=== PATIENT | female | born 1990 | race Caucasian/White ===

== ENCOUNTER → 2020-01-06 | Outpatient (CLI) | payer BC, SELFPAY ==
[2020-01-06 09:19] VITALS: BMI 25.0
[2020-01-06 16:56] LABS: Amphetamine Urine VISTA NEGATIVE (<1000 ng/mL); Barbiturate Urine VISTA NEGATIVE (< 200 ng/mL); Benzodiazepine Urine VISTA NEGATIVE (< 200 ng/mL); Cocaine Urine VISTA NEGATIVE (< 300 ng/mL); Ecstacy Urine VISTA NEGATIVE (< 500 ng/mL); Methadone Urine VISTA NEGATIVE (< 300 ng/mL); PCP Urine VISTA NEGATIVE (< 25 ng/mL); THC Urine VISTA NEGATIVE (< 50 ng/mL); Vista UDS pH Range 6
[2020-01-10 03:06] LABS: Chlamydia By Nucleic Acid AMP Negative (Negative)
[2020-01-10 05:40] LABS: Gonococcus By Nucleic Acid AMP Negative (Negative)
== END | disposition home or self-care (01) ==
LOC: LABSPEC 16:25
PROVIDERS: Referring Provider Obstetrics & Gynecology; Visit Provider Obstetrics & Gynecology
DX: Z34.90 Encounter for supervision of normal pregnancy, unspecified, unspecified trimester (principal)
CPT/HCPCS: 80307; 87086; 87491; 87591

== ENCOUNTER → 2020-02-05 09:15 | Outpatient (CLI) | payer BC, SELFPAY ==
[2020-02-05 08:24] VITALS: BMI 25.0
[2020-02-05 10:21] LABS: Absolute Lymphocyte Count 2.88 X10^3/uL (0.83-4.51); Absolute Neutrophil Count 5.3 X10^3/uL (2.0-7.7); Basophil# 0.04 X10^3/uL; Basophil% 0.4 % (0-1); Eosinophil# 0.07 X10^3/uL; Eosinophils% 0.8 % (0-5); Hematocrit 37.5 % (37-47); Hemoglobin 12.9 g/dL (12.0-15.0); Lymphocyte # 2.88 X10^3/ul (4.0); Lymphocyte % 31.4 % (19-41); Mean Corp Hgb Conc 34.4 g/dL (32-36); Mean Corpuscular Hgb 30.1 pg (27.0-32.0); Mean Corpuscular Volume 87.6 fL (81-99); Mean Platelet Vol. 9.7 fl (6.2-12.0); Monocyte# 0.82 X10^3/uL; Monocyte% 8.9 % (0-10); NRBC Flagged by Analyzer 0 % (0-5); Neutrophil # 5.31 X10^3/uL (2.7-7.7); Neutrophil % 57.8 % (47-70); Platelet Count 242 K/mm3 (150-450); RBC Distribution Width CV 12.7 % (11.6-14.6); RBC Distribution Width SD 40.2 fl (35.1-43.9); Red Blood Count 4.28 M/mm3 (4.2-5.4); White Blood Count 9.2 K/mm3 (4.4-11.0)
[2020-02-05 11:13] LABS: HIV - WCH Non-Reactive (Nonreactive); Hepatitis B Surface Antigen Non-Reactive (Nonreactive); Hepatitis C Antibody Non-Reactive (Nonreactive); Rubella IgG > 500.0 IU/mL
[2020-02-11 01:33] LABS: Rapid Plasmin Reagin (RPR) NONREACTIVE (NONREACTIVE)
== END ==
PROVIDERS: Referring Provider Obstetrics & Gynecology; Visit Provider Obstetrics & Gynecology
DX: Z34.90 Encounter for supervision of normal pregnancy, unspecified, unspecified trimester (principal)
CPT/HCPCS: 36415; 85025; 86592; 86703; 86762; 86803; 86850; 86900; 86901; 87340

== ENCOUNTER → 2020-05-20 09:17 | Outpatient (CLI) | payer BC, SELFPAY ==
[2020-04-27 09:01] VITALS: BMI 26.6
[2020-05-20 09:44] LABS: Absolute Lymphocyte Count 2.38 X10^3/uL (0.83-4.51); Absolute Neutrophil Count 8.3 X10^3/uL (2.0-7.7); Basophil# 0.05 X10^3/uL; Basophil% 0.4 % (0-1); Eosinophil# 0.06 X10^3/uL; Eosinophils% 0.5 % (0-5); Hematocrit 35.5 % (37-47); Hemoglobin 12.5 g/dL (12.0-15.0); Lymphocyte # 2.38 X10^3/ul (4.0); Lymphocyte % 20.5 % (19-41); Mean Corp Hgb Conc 35.2 g/dL (32-36); Mean Corpuscular Hgb 31.6 pg (27.0-32.0); Mean Corpuscular Volume 89.6 fL (81-99); Mean Platelet Vol. 9.5 fl (6.2-12.0); Monocyte# 0.71 X10^3/uL; Monocyte% 6.1 % (0-10); NRBC Flagged by Analyzer 0 % (0-5); Neutrophil # 8.27 X10^3/uL (2.7-7.7); Neutrophil % 71.3 % (47-70); Platelet Count 222 K/mm3 (150-450); RBC Distribution Width CV 13.1 % (11.6-14.6); RBC Distribution Width SD 42.5 fl (35.1-43.9); Red Blood Count 3.96 M/mm3 (4.2-5.4); White Blood Count 11.6 K/mm3 (4.4-11.0)
[2020-05-20 10:03] LABS: Glucose Challenge Gest 1H 50g 102 mg/dL (70-140)
== END ==
PROVIDERS: Obstetrics & Gynecology; Referring Provider Obstetrics & Gynecology; Visit Provider Obstetrics & Gynecology
DX: Z34.90 Encounter for supervision of normal pregnancy, unspecified, unspecified trimester (principal)
CPT/HCPCS: 36415; 82950; 85025

== ENCOUNTER → 2020-07-01 08:49 | Outpatient (CLI) | payer BC, SELFPAY ==
[2020-07-01 08:24] VITALS: BMI 27.8
[2020-07-01 09:00] LABS: Absolute Lymphocyte Count 2.55 X10^3/uL (0.83-4.51); Basophil# 0.03 X10^3/uL; Basophil% 0.3 % (0-1); Eosinophil# 0.04 X10^3/uL; Eosinophils% 0.4 % (0-5); Hematocrit 37.7 % (37-47); Lymphocyte # 2.55 X10^3/ul (4.0); Lymphocyte % 22.4 % (19-41); Mean Corp Hgb Conc 34.5 g/dL (32-36); Mean Corpuscular Hgb 31.3 pg (27.0-32.0); Mean Corpuscular Volume 90.8 fL (81-99); Mean Platelet Vol. 9.7 fl (6.2-12.0); Monocyte# 0.69 X10^3/uL; Monocyte% 6.1 % (0-10); NRBC Flagged by Analyzer 0 % (0-5); Neutrophil # 8.01 X10^3/uL (2.7-7.7); Neutrophil % 70.2 % (47-70); Platelet Count 221 K/mm3 (150-450); RBC Distribution Width CV 13.3 % (11.6-14.6); RBC Distribution Width SD 43.1 fl (35.1-43.9); Red Blood Count 4.15 M/mm3 (4.2-5.4); White Blood Count 11.4 K/mm3 (4.4-11.0)
[2020-07-01 09:30] LABS: ALB/GLOB Ratio 0.7 RATIO (0.9-2.4); AST(SGOT) 19 U/L (15-37); Alanine Aminotransfer ALT/SGPT 21 U/L (13-56); Albumin, Serum 2.5 g/dL (3.2-5.0); Alkaline Phosphatase 161 U/L (45-117); Anion Gap 8 (5-15); BUN 5 mg/dL (7-18); BUN/Creat Ratio 7.9 RATIO (10-20); Calcium,Total 8.6 mg/dL (8.5-10.1); Chloride 109 mmol/L (98-107); Creatinine, Serum 0.63 mg/dL (0.55-1.02); EST Glomerular Filtration Rate 116 mL/min (>60); Est Glom Filt Rate - Afr Amer 140 mL/min (>60); Globulin 3.7 g/dL (2.2-4.2); Glucose 113 mg/dL (74-106); Potassium 3.6 mmol/L (3.5-5.1); Protein, Total 6.2 g/dL (6.4-8.2); Sodium Level 139 mmol/L (136-145)
[2020-07-01 13:13] LABS: Protein, Urine (Random) 24.3 mg/dL (<11.9); Protein:Creat Ratio 116 mg/g CRE (0-200)
== END ==
PROVIDERS: Referring Provider Obstetrics & Gynecology; Visit Provider Obstetrics & Gynecology
DX: O16.3 Unspecified maternal hypertension, third trimester (principal); Z3A.00 Weeks of gestation of pregnancy not specified
CPT/HCPCS: 36415; 80053; 82570; 84156; 85025

== ENCOUNTER → 2020-07-15 | Outpatient (CLI) | payer BC, SELFPAY ==
[2020-07-15 09:14] VITALS: BMI 28.1
== END | disposition home or self-care (01) ==
LOC: LABSPEC 13:07
PROVIDERS: Visit Provider Obstetrics & Gynecology
DX: Z34.93 Encounter for supervision of normal pregnancy, unspecified, third trimester (principal); Z3A.36 36 weeks gestation of pregnancy
CPT/HCPCS: 87077; 87081; 87186

== ENCOUNTER 2020-07-30 20:00 | Inpatient (IN) | payer BC, SELFPAY ==
[2020-07-29 09:10] VITALS: BMI 28.7
[2020-07-30] VITALS (24 sets, daily range): BP systolic 107–148; BP diastolic 58–95; PULSE 92–126; TEMP 37.2–37.8; O2SAT 99–100; BMI 29.0
[2020-07-30 19:58] LABS: ROM Internal Control Test YES-OK TO RESULT pt. (Internal QC)
[2020-07-30 19:59] LABS: ROM Patient Test POSITIVE (Negative)
[2020-07-30] MEDS: Lactated Ringers 1,000 ML 50 ML IV (20:46)
[2020-07-30 20:56] LABS: Absolute Lymphocyte Count 2.75 X10^3/uL (0.83-4.51); Absolute Neutrophil Count 14.7 X10^3/uL (2.0-7.7); Basophil# 0.06 X10^3/uL; Basophil% 0.3 % (0-1); Eosinophil# 0.02 X10^3/uL; Eosinophils% 0.1 % (0-5); Hematocrit 41.9 % (37-47); Hemoglobin 14.4 g/dL (12.0-15.0); Lymphocyte # 2.75 X10^3/ul (4.0); Lymphocyte % 14.6 % (19-41); Mean Corp Hgb Conc 34.4 g/dL (32-36); Mean Corpuscular Volume 90.1 fL (81-99); Mean Platelet Vol. 10.1 fl (6.2-12.0); Monocyte# 1.17 X10^3/uL; Monocyte% 6.2 % (0-10); NRBC Flagged by Analyzer 0 % (0-5); Neutrophil # 14.74 X10^3/uL (2.7-7.7); Neutrophil % 78.4 % (47-70); Platelet Count 237 K/mm3 (150-450); RBC Distribution Width CV 13.2 % (11.6-14.6); RBC Distribution Width SD 42.9 fl (35.1-43.9); Red Blood Count 4.65 M/mm3 (4.2-5.4); White Blood Count 18.8 K/mm3 (4.4-11.0)
[2020-07-30] MEDS: Ondansetron 4 MG/2 ML Vial IV (21:33)
[2020-07-30] MEDS: Lactated Ringers 500 ML 999 ML IV (21:56)
[2020-07-30] MEDS: fentaNYL-bupivacaine (epidural) 100 ML BAG EPIDURAL (23:19)
[2020-07-31] VITALS (32 sets, daily range): BP systolic 110–135; BP diastolic 58–95; PULSE 84–134; RESP 15–16; TEMP 36.4–38.8; O2SAT 96–100
--- NOTE | 2020-07-31 | PLAC_PTH ---
PATIENT: CATERINA DAWKINS LOC: [facility] U#:[id number] AGE/SX: 30/F ROOM: WP3 RE07/30/[address]: Dr. Ana Santana MD : 1990 BED: 1 DIS: 08/01/2020 SPEC #: [id number] RECD: 07/31/20 07:45 STATUS: CRESENCIO SALASAngella #: [id number] KARON: 07/31/20 00:[address]: Ana Santana DEPT: SURGICAL PATHOLOGY RECD BY: Jono Clark ENTERED: 08/01/20 07:38 SP TYPE: PLACENTA OTHR DR: No Primary Care Phys Tissues: Placenta, NOS Procedures: Surgery Specimen Level V HEADER OPERATION: Vaginal delivery PRE-OP DIAGNOSIS: Vaginal delivery TISSUE SUBMITTED: Placenta MICROSCOPIC DIAGNOSIS Felipe placenta (609 gm): Umbilical cord - trivascular with acute funisitis. Placental membranes - acute chorioamnionitis and acute deciduitis. Placental disc - John-Vignesh change and mild intervillous congestion. AM:huan 08/03/2020 MICROSCOPIC DESCRIPTION Slides are reviewed. GROSS DESCRIPTION SPECIMEN: PLACENTA / CLINICAL INFORMATION: A. Weight: 3.62 kg B. Gestational Age: 39 weeks C. Sex: Female PLACENTAL WEIGHT (POST FIXATION): 609 gm PLACENTAL DIMENSIONS: 25 x 19 x 3 cm PLACENTAL SHAPE: Usual ovoid PLACENTAL WEIGHT FOR GESTATIONAL AGE: Over 99th percentile MEMBRANES - Present A. Insertion: Marginal B. Site of rupture from edge: At edge of placental disc C. Color of membrane: Diaz-downing D. Abnormalities: None UMBILICAL CORD - Present A. Color: Diaz-downing B. Insertion: Paracentral C. Length: 27 cm D. Diameter: 1 cm E. Number of vessels: Three F. Abnormalities: None PLACENTAL DISC - Present A. Color of surface: Diaz-downing. surface shows focal area of membrane hemorrhage. B. surface abnormalities: None C. Maternal cotyledons: Intact with minimal tears D. Attached retro placental clot: No clot E. Cut surface: Dark red and spongy F. Lesions: None G. Separate clot: Absent SECTIONS SUBMITTED: 1. Membrane roll 2. Cord, maternal end 3. Cord, end 4. Placental disc, and maternal surfaces 5. Placental disc, and maternal surfaces 6. Placental disc, and maternal surfaces SJ:huan 08/02/20 TC:2 CPT: 25772
[2020-07-31] MEDS: Acetaminophen 500 MG Tablet PO (01:27)
[2020-07-31] MEDS: Ondansetron 4 MG/2 ML Vial IV ×2 (01:38→06:01)
[2020-07-31] MEDS: Lactated Ringers 500 ML 999 ML IV ×2 (01:45→05:38)
[2020-07-31] MEDS: fentaNYL-bupivacaine (epidural) 100 ML BAG EPIDURAL (03:39)
[2020-07-31] MEDS: Oxytocin 30 units/NS 500 ml 30 UNITS/500 ML IV.SOLN 334 UNITS IV ×2 (07:03)
--- NOTE | 2020-07-31 07:28 | PCM.HPOB.BLA ---
- Problem List (1) Active labor at term Status: Acute (2) 36 weeks gestation of Status: Acute Comment: electronic covid test ordered 07/08/20 (scheduled for 08/05/20 at 1330) (3) GBS (group B Streptococcus carrier), +RV culture, currently Status: Acute (4) Status: Acute Qualifiers: Comment: Declines carrier, genetic testing, NTD. anatomy nl (5) Supervision of normal Status: Acute Qualifiers: Comment: PRR DUNCAN:08/04/20 Girl! Kaur Spouse:Ang History and Physical Date of Admission: 07/30/20 Intake Vital Signs 07/29/20 Height 5 ft 6 in 07/29/20 Weight: 178 lb 2 oz 07/29/20 BMI 28.7 07/29/20 BP 134/90 H Intake Visit Reasons: 39WK OB Oxyacetylene Burner Required: No Is patient in pain?: No Allergies No Known Allergies Allergy (Verified 07/29/20 09:14) Medications docosahexaenoic acid 200 mg capsule mg PO 01/06/20 [History Confirmed 07/29/20] Last Menstral Period: 10/29/19 Zika: Zika virus screening: Negative : No PFSH PFSH Medical History Seasonal allergies (Resolved) Surgical History H/O thumb surgery (Resolved) Family History Father Hypertension Grandmother Lung cancer Grandmother Breast cancer Social History (Updated 07/29/20 @ 09:[address] Ana Santana MD) Smoking Status: Never smoker details: not while substance use type: does not use caffeine: Yes what type of physical activity do you participate in: walking frequency: 1-2 times per week seatbelt use: always do you feel safe at home: Yes additional social history: Pboftmm-Qlyw-Mtfighp Worker Patient works at [employer] in [employer] Pregancy History 1 Elective abortions Hx Para Spontaneous abortions Hx # Term Pregnancies Ectopic pregnancies Hx # Pregnancies Multiple births # of living children HPI 39WK OB : Details: CATERINA DAWKINS is a 30 year old who presents for routine OB visit. OB Visit DUNCAN Calculator Estimated Delivery Date Method Current WG Current Estimate 08/04/20 LMP (Certain) 39w 1d Other Estimates 08/09/20 Ultrasound #1 38w 3d Expected Delivery Route/Plan Labor Preferences- CB/BF classes: scehduled - July 13 labor support person:Ang labor intervention preferences: open to standard interventions - keeping an open mind pain management options preferred: epidural cut cord/dad catch: NO - is squeamish : [] PP control planned: [] discussed possible routes of delivery and associated risks: discussed possible delivery modalities and possible indications for each including R/B/A of , VAVD, and CS. questions answered. special requests: [] Specific Issue/Plans flu vaccine: given tdap vaccine: given rhogam: na LARC form signed: declined movement and labor precautions reviewed. Problem list reviewed and updated with the most current plan of care details and appropriate orders placed. Relevant counseling for the gestational age provided. Continue routine care and follow up unless otherwise noted in visit notes/problem list details Initial Weight: Not Recorded Date EGA Weight BP Urine Prot Glucose FHR FuHt Pres Dilation Effaced St Visit Note 01/06/20 9w 6d 155 lb 6 oz 140/90 180 GP - CRL 21.8mm consistent with LMP 02/05/20 14w 1d 161 lb 2 oz 128/88 Negative Negative 144 GP - no cramping or bleeding. Anatomy scan ordered. Has not yet had labs - will get drawn today. 03/04/20 18w 1d 161 lb 130/86 Negative Negative 145 GP - no cramping or bleeding. Denies complaints. nausea much improved. PRR. Anatomy scheduled. Planning to find out gender at scan. 03/23/20 20w 6d 164 lb 130/82 Negative Negative 150 GP - no cramping or bleeding. Not yet feeling movement. Placenta anterior. Having a girl! anatomy results normal. 04/27/20 25w 6d 165 lb 4 oz 122/82 Negative Negative 150 25 GP - no LOF, VB, DFM, ctx. Denies complaints. Discussed GCT next visit. GP - no LOF, VB, DFM, ctx. Denies complaints. Discussed GCT next visit. Considering Kaur for name. 05/20/20 29w 1d 167 lb 120/82 Negative Negative 150 29 SM- no vb lof good fm no regular ctx 06/03/20 31w 1d 167 lb 118/82 Negative Negative 150 31 SM- no vb lof good fm n oregular ctx signed larc 06/17/20 33w 1d 171 lb 4 oz 122/88 Negative Negative 135 33 GP - no LOF, VB, DFM, ctx. Started discussing labor preferences but not doing CB classes until July. Discussed routes of delivery. 07/01/20 35w 1d 172 lb 8 oz 120/90 Trace Negative 155 35 GP - no LOF, VB, DFM, ctx. Baby shower is this weekend. 07/15/20 37w 1d 174 lb 6 oz 120/84 Negative Negative 145 37 Cephalic 0.5 50 -2 GP - no ctx, LOF, VB, DFM. GBS done today. 07/22/20 38w 1d 176 lb 6 oz 138/88 Negative Negative 150 38 Cephalic GP - no LOF, VB, DFM, ctx. Denies complaints. 07/29/20 39w 1d 178 lb 2 oz 134/90 Negative Negative 145 39 Cephalic 2 50 -2 GP - no LOF, VB, DFM, regular ctx. Membranes swept today. Diagnostics Diagnostics Diagnostics Blood Type A POSITIVE 02/05/20 Antibody Screen NEGATIVE 02/05/20 Glucose 1 Hr 50 gm 102 mg/dL (70-140) 05/20/20 HIV 1&2 Antibody Non-Reactive (Nonreactive) 02/05/20 Rubella IgG Antibody > 500.0 IU/mL 02/05/20 Hgb 13.0 g/dL (12.0-15.0) 07/01/20 Hct 37.7 % (37-47) 07/01/20 RPR NONREACTIVE (NONREACTIVE) 02/05/20 Details: HIV: Urine Culture: Sequential Screen: NIPT Screen: ROS Const Reports system reviewed and no additional complaints, except as docu Eyes Reports system reviewed and no additional complaints, except as docu ENT Reports system reviewed and no additional complaints, except as docu Card Reports system reviewed and no additional complaints, except as docu Resp Reports system reviewed and no additional complaints, except as docu GI Denies heartburn, Denies nausea, Denies vomiting Denies abnormal vaginal bleeding, Denies painful urination, Denies pelvic pain, Denies vaginal discharge, Denies vaginal odor, Denies vaginal itching Musc Reports system reviewed and no additional complaints, except as docu Skin/Breast Reports system reviewed and no additional complaints, except as docu Neuro Yes system reviewed and no additional complaints, except as docu Psych Reports system reviewed and no additional complaints, except as docu Endo Reports system reviewed and no additional complaints, except as docu Exam Const General: cooperative, healthy appearing, comfortable, no acute distress, well developed, well groomed Nutritional Appearance: average body habitus, well nourished Orientation: alert, awake, oriented x3 HENMT Head: normal to inspection, normocephalic, atraumatic Eyes Pupils: PERRL, accommodation normal Resp Effort & Inspection: normal respiratory effort, able to speak in complete sentences, symmetric chest movement Cardio Rate: regular rate GI Palpation: soft, no guarding, no masses, nontender Skin General: no rashes or lesions noted, elasticity normal, turgor normal Neuro General: alert, awake, oriented x3 Cranial Nerves: CN's II-XI intact bilaterally, sense of smell intact, PERRL, accommodation normal, EOM intact bilaterally Speech: speech normal Gait: normal gait Psych Appearance: grossly normal, well kempt Mental Status: mental status grossly normal Mood: congruent mood Affect: normal affect Speech and Movement: speech and movement normal Attitude: cooperative Thought Process: normal Thought Content: normal Judgment: judgment good Results POC Urinalysis 2 Dip (Clinic) Office Urine Glucose Negative Last Edit by Kaur Munoz on 07/29/20 09:24 Office Urine Protein Negative Last Edit by Kaur Munoz on 07/29/20 09:24 Assessment & Plan Problems 1. GBS (group B Streptococcus carrier), +RV culture, currently O99.820 2. 36 weeks gestation of Z3A.36 electronic covid test ordered 07/08/20 (scheduled for 08/05/20 at 1330) 3. Encounter for supervision of normal first in third trimester Z34.03 PRR DUNCAN:08/04/20 Girl! Kaur Spouse:Ang 4. 39 weeks gestation of Z3A.39 Declines carrier, genetic testing, NTD. anatomy nl Patient presents IAL, plan expectant management for , pitocin if needed. Pain management: plans epidural. GBS positive plan IV PCN. Management of any complications: none I have reviewed the PFSH and made any clinically relevant updates. UPDATE- I have seen the patient and performed any clinically relevant updates to the history and physical exam. Ana Santana MD
--- NOTE | 2020-07-31 07:30 | PCM.OPRPT ---
Problem List (1) Active labor at term Status: Acute (2) 36 weeks gestation of Status: Acute Comment: electronic covid test ordered 07/08/20 (scheduled for 08/05/20 at 1330) (3) GBS (group B Streptococcus carrier), +RV culture, currently Status: Acute (4) Status: Acute Qualifiers: Comment: Declines carrier, genetic testing, NTD. anatomy nl (5) Supervision of normal Status: Acute Qualifiers: Comment: PRR DUNCAN:08/04/20 Girl! Kaur Spouse:Ang Vaginal Delivery Maternal Presentation: Active Labor 30-year-old G1, P0 at 39 weeks gestation presents in active labor. Patient made cervical change to complete dilation without augmentation. Amniotic Membrane Rupture Type: Spontaneous at home Amniotic Fluid Description: Clear Final DUNCAN: 08/04/20 Gestational age: 39 Weeks and 3 Days Date of Procedure: 07/31/20 Pre-Operative Diagnosis: Term , active labor, suspected triple I Post-Operative Diagnosis: Same Surgery/ Procedure Performed: Spontaneous Vaginal Delivery Type of Anesthesia: Epidural Description of Procedure: Patient began pushing and delivered the head in the PAUL presentation. The head was delivered atraumatically and no nuchal cord was noted. The anterior and posterior shoulders delivered without complication followed by the rest of the infant and the infant was placed on the maternal abdomen. Delayed cord clamping was employed for approximately 60 seconds. Cord was clamped and cut and gentle traction was applied to the cord and the placenta delivered spontaneously immediately following it was noted to be intact with three-vessel cord. The perineum and vagina were inspected and a first-degree perineal and left labial laceration were noted and repaired in the standard fashion using 3-0 Vicryl Rapide suture. EBL was 200 cc. Patient and tolerated delivery well. Presentation: Vertex, PAUL Placental Delivery Description: Spontaneous Placenta Disposition: [facility] Cord Vessel Description: 3 Vessels Cord Entanglement: None Estimated Blood Loss: 200 A gender: Female (1 minute): 8 (5 minute): 9 Episiotomy Description: None Laceration: Midline, Perineal Extension/lac, Vaginal Extension/lac, 1st degree Medications given after delivery: IV Pitocin Complications: None Multi Select Codes - Urinary/Genital Urinary/Genital CPT Codes: 09304 Vaginal Delivery [facility]
--- NOTE | 2020-07-31 07:33 | DCINST_ITS ---
Discharge Diet: No Restrictions Discharge Activity: Return to Normal Activity, May not drive while taking narcotic pain medications., May Shower May resume sexual activity in: 4-6 weeks Additional Activity Instructions:: Nothing in the vagina for 4-6 weeks. You may return to work/school in 6 weeks. Call your doctor if your incision/area has: Continuous Slow Oozing, Sudden Increased Bleeding, Increased Pain/ Swelling, Increased Redness, Foul Smelling Discharge Additional Instructions: If you experience any of the following, contact your healthcare provider. * Bleeding that soaks a pad every hour for 2 hours * Fever 100.4 or higher * Unrelieved incision or abdominal pain * Swelling, redness, discharge or bleeding from your incision or episiotomy site * Your incision begins to separate * Problems urinating (including inability to urinate or burning while urinating). * Visual changes * Severe headache * Flu-like symptoms * Pain or redness in one of both of your breasts * Pain, warmth, tenderness or swelling in your legs, especially the calf area * Frequent nausea and vomiting * Symptoms of depression or anxiety If you experience any of the following, call 911 or go to the nearest Emergency Room. * Chest pain * Problems breathing * Seizure activity * Partial or complete paralysis of a body part, slurred speech, weakness or drooping of the face, or a sudden inability to walk or hold your balance Allergies/Adverse Reactions: Allergies No Known Allergies Allergy (Verified 07/30/20 19:41) Medications to take at Discharge docosahexaenoic acid 200 mg capsule mg PO 01/06/20 Multivitamin 1 each PO DAILY 07/30/20 When: Call to make an appointment with your doctor in 6 weeks. If you had elevated Blood Pressure or 4th degree laceration you will need to be seen in 2 weeks. Primary Care Physician: Care Physician,No Primary [Primary Care Provider] - Test Results: Test results from this visit will be discussed in further detail at your follow- up appointment, if applicable.
[2020-07-31] MEDS: Acetaminophen 500 MG Tablet 1000 MG PO (07:47)
[2020-07-31] MEDS: Lactated Ringers 1,000 ML 100 ML IV (08:53)
[2020-08-01] VITALS (10 sets, daily range): BP systolic 128–145; BP diastolic 75–89; PULSE 76–92; RESP 16; TEMP 36.3–36.7; O2SAT 98–99
--- NOTE | 2020-08-01 07:50 | PCM.PN.OB ---
Patient Problems: Active and Suspected Problems (Last Reviewed 07/29/20 @ 09:10 by Kaur Munoz) Active labor at term (Acute) GBS (group B Streptococcus carrier), +RV culture, currently (Acute) 36 weeks gestation of (Acute) electronic covid test ordered 07/08/20 (scheduled for 08/05/20 at 1330) Supervision of normal (Acute) PRR DUNCAN:08/04/20 Girl! Kaur Spouse:Ang (Acute) Declines carrier, genetic testing, NTD. anatomy nl Subjective: Patient doing well without complaints. Tolerating PO. Ambulating and voiding without difficulty.Breast feeding well. Denies chest pain, shortness of breath, calf pain/swelling, fevers, chills, lightheadedness. - Physical Exam Vitals/I&O's: Vital Signs Temp Pulse Resp BP Pulse Ox 97.5 F L 82 16 128/81 H 98 08/01/20 04:21 08/01/20 04:23 08/01/20 04:21 08/01/20 04:23 08/01/20 04:22 Oxygen Delivery Method Room Air Weight: 180 lb Body Mass Index (BMI) 29.0 Intake and Output for Last 24 Hours 07/30/20 07/31/20 08/01/20 23:59 23:59 23:59 Intake Total 628.33 / 628.33 3395.84 / 3395.84 2657.5 / 2657.5 Output Total 450 / 450 Balance 628.33 / 628.33 2945.84 / 2945.84 2657.5 / 2657.5 General: Alert, Oriented x3 Abdomen: Soft, Non Tender, Non-Distended, - - FF below U Microbiology Past 72 Hours 07/30/20 22:15 Mucosa - Nose SARS-CoV-2 Antigen (Rapid) - Final Current Medications Acetaminophen (Acetaminophen 500 Mg Tablet) 1,000 mg PO Q8H PRN PRN PRN Reason: Pain Score 1-3 Bisacodyl (Bisacodyl 10 Mg Suppository) 10 mg RC UD PRN PRN Reason: If no BM Dibucaine (Dibucaine 30 Gm Tube) 1 applic TOPICAL TID PRN PRN; Protocol PRN Reason: Discomfort Hydrocortisone (Hydrocortisone 2.5% Crm) 1 applic TOPICAL TID PRN PRN; Protocol PRN Reason: Discomfort Ampicillin Sodium 2 gm/ Sodium (Chloride) 100 mls @ 200 mls/hr IV Q6H NIGEL Last Infusion: 08/01/20 07:37 Dose: Infused Documented by: Methylergonovine Maleate (Methylergonovine 0.2 Mg/Ml Ampul) 0.2 mg IM X1 PRN PRN Reason: Excess bleeding/uterine atony Naproxen (Naproxen 250 Mg Tablet) 500 mg PO Q8H PRN PRN PRN Reason: Pain Score 1-3 Ondansetron HCl (Ondansetron 4 Mg/2 Ml Vial) 4 mg IV Q4H PRN PRN PRN Reason: Nausea Oxycodone HCl (Oxycodone 5 Mg Tablet) 5 - 10 mg PO Q4H PRN PRN PRN Reason: Pain Score 4-10 Senna/Docusate Sodium (Senna/Docusate Sodium 1 Tablet) 1 - 2 tablet PO DAILY PRN PRN PRN Reason: Constipation Simethicone (Simethicone 80 Mg Tablet) 80 mg PO PCHS PRN PRN Reason: Indigestion/Stomach pain Sodium Chloride (0.9% Saline Lock 10 Ml Syringe) 5 - 15 ml IV UD PRN PRN Reason: SALINE FLUSH Medical Necessity - Tobacco Use Smoking Status: Never smoker Assessment/Plan All Active Problems (Last Reviewed 07/29/20 @ 09:10 by Kaur Munoz) Active labor at term (Acute) GBS (group B Streptococcus carrier), +RV culture, currently (Acute) 36 weeks gestation of (Acute) Supervision of normal (Acute) (Acute) Seasonal allergies (Resolved) s/p PPD # 1. routine post delivery care 2. breast feeding- support given 3. rh positive 4. rubella immune 5. plans home today if baby stable
[2020-08-01] MEDS: Naproxen 250 MG Tablet 500 MG PO ×2 (08:58→19:51)
[2020-08-03 14:11] LABS: Pathology Specimen OB SEE PATHOLOGY REPORT
== END 2020-08-01 20:00 | disposition home or self-care (01) | DRG 807 ==
LOC: WPOUT 20:03 → WP 20:03
PROVIDERS: Admitting Provider Obstetrics & Gynecology; Visit Provider Obstetrics & Gynecology
DX: O41.1230 Chorioamnionitis, third trimester, not applicable or unspecified (principal); Z37.0 Single live birth; O70.0 First degree perineal laceration during delivery; O99.824 Streptococcus B carrier state complicating childbirth; O42.92 Full-term premature rupture of membranes, unspecified as to length of time between rupture and onset of labor; Z3A.39 39 weeks gestation of pregnancy
CPT/HCPCS: 59025; 59050; 84112; 85025; 86850; 86900; 86901; 87426; 88307; 99218; J7120; G0378; J2405

== ENCOUNTER → 2020-09-15 | Outpatient (CLI) | payer BC, SELFPAY ==
[2020-09-15 09:36] VITALS: BMI 29.0
[2020-09-19 16:04] LABS: HPV APTIMA, High Risk Negative (Negative)
== END | disposition home or self-care (01) ==
LOC: LABSPEC 12:28
PROVIDERS: Referring Provider Obstetrics & Gynecology; Visit Provider Obstetrics & Gynecology
DX: Z12.4 Encounter for screening for malignant neoplasm of cervix (principal)
CPT/HCPCS: 87624; 88175; G0145